=== PATIENT | female | born 1955 | race Caucasian/White ===

== ENCOUNTER 2024-05-22 03:33 | Emergency (ER) | payer MEDICARE, OTHER, SELFPAY ==
[2024-05-22 03:35] VITALS: BP 90/53
[2024-05-22] MEDS: ZOFRAN 4 MG IV (03:57)
[2024-05-22] MEDS: NSS 1000 IV (04:00)
[2024-05-22] MEDS: TYLENOL 1000 MG PO (04:05)
[2024-05-22 04:15] LABS: % Basophils 0.2 % (0-2); % Eosinophils 0.4 % (0-6); % Immature Granulocytes 0.6 % (0-0.5); % Monocytes 13.4 % (1.7-9.3); % Neutrophils 80.4 % (42.2-75.2); Absolute Lymphocytes 0.3 10^3/uL (1.2-3.4); Absolute Monocytes 0.7 10^3/uL (0.1-0.6); Absolute Neutrophils 4.4 10^3/uL (1.4-6.5); Hematocrit 37.8 % (37.0-47.0); Hemoglobin 13.6 g/dL (12.0-16.0); Mean Corpuscular Hgb 31.9 pg (27.0-31.0); Mean Corpuscular Volume 88.7 fL (81.0-99.0); Mean Platelet Volume 10.5 fL (7.4-10.4); Nucleated Red Blood Cells % 0 %; Platelet Count 150 10^3/uL (130-400); Red Blood Cell Count 4.26 10^6/uL (4.20-5.40); Red Cell Dist. Width 13.2 % (11.5-14.5); White Blood Cell Count 5.5 10^3/uL (4.8-10.8)
[2024-05-22 04:27] LABS: ALT (SGPT) 23 U/L (0-35); AST (SGOT) 32 U/L (14-36); Albumin 4.4 g/dl (3.5-5.0); Alkaline Phosphatase 77 U/L (38-126); Blood Urea Nitrogen 12 mg/dl (7-17); Calcium 9.5 mg/dl (8.4-10.2); Carbon Dioxide 20 mmol/L (22-30); Chloride 106 mmol/L (98-107); Glucose 118 mg/dl (70-99); Lipase 92 U/L (23-300); Potassium 3.6 mmol/L (3.5-5.1); Sodium 136 mmol/L (135-145); Total Bilirubin 0.4 mg/dl (0.2-1.3); Total Protein 6.5 g/dl (6.3-8.2); eGFR > 60.00
[2024-05-22 04:44] LABS: COVID-19 Antigen Positive (Negative)
[2024-05-22 04:46] LABS: Urine Albumin Negative (Neg - Trace); Urine Bilirubin Negative (Negative); Urine Character Slightly Cloudy (Clear); Urine Color Yellow; Urine Glucose Negative (Negative); Urine Ketone Trace (Negative); Urine Leukocyte Negative (Negative); Urine Nitrite Negative (Negative); Urine Occult Blood Negative (Negative); Urine Specific Gravity 1.015 (<1.030); Urine Urobilinogen Negative (Neg - 1+)
--- NOTE | 2024-05-22 05:11 | ED.GENMED ---
History of Present Illness
General
Chief Complaint: Abdominal Symptoms
Source: patient and spouse
Exam Limitations: none
Time Seen by Provider: 05/22/24 03:54
History of Present Illness
History of Present Illness:
68-year-old female who presents as started feeling ill after dinner. Started having shakes and fevers and felt nauseous. She also chills. She has a history of esophageal candidiasis. She states she only really vomited at home. Admits to a
little bit of epigastric pain. No cough. No sore throat. No rash
Past History
Past History
ED Past Medical History: GERD and Other (Scleroderma, depression, recovering alcoholic, esophageal and oral candidiasis)
ED Past Surgical History: Cholecystectomy, Gynecological and Orthopedic
Phy Exam
Physical Exam
Physical Exam:
CONSTITUTIONAL Patient alert and oriented to person, place and time. Vital signs reviewed. Febrile
HEAD atraumatic, normocephalic.
EYES eyelids normal to inspection, Extraocular muscles intact, Conjunctiva normal, Sclera normal.
NECK normal range of motion, Trachea midline, no jugular venous distention.
RESPIRATORY CHEST No respiratory distress noted, Chest expansion equal
ABDOMEN mild epigastric tenderness, Bowel sounds normal. No distention.
BACK normal inspection, no obvious deformities
UPPER EXTREMITY range of motion normal, Motor strength normal, no cyanosis, no edema.
LOWER EXTREMITY range of motion normal, Motor strength normal, no cyanosis, no edema.
NEURO Speech normal, No focal motor deficits, Kevon coma scale 15, Memory normal, Cranial Nerves intact to screening exam.
SKIN skin warm, dry, and normal in color.
PSYCHIATRIC patient oriented to person place and time, Normal affect.
Course
Orders/Labs/Results
Orders:
Orders
05/22/24 03:55
Ondansetron Injectable [Zofran] 4 mg IV NOW STA
05/22/24 03:56
Acetaminophen [Tylenol] 1,000 mg .ROUTE .[facility]
Ondansetron Injectable [Zofran] 4 mg .ROUTE .[facility]
05/22/24 04:00
0.9% Sodium Chloride 1000 ml [Nss] 1,000 ml IV BOLUS
05/22/24 04:03
Complete Blood Count/With Diff Urgent
Comprehensive Metabolic Panel Urgent
Lipase Urgent
05/22/24 04:05
Acetaminophen [Tylenol] 1,000 mg PO NOW STA
05/22/24 04:33
COVID-19 Antigen Urgent
Source: Nasal Swab
05/22/24 04:34
Urinalysis Reflex To Culture Urgent
Date Specimen was Collected: 05/22/24
Time Specimen was Collected: 04:28
05/22/24 05:09
Vital Signs- Treatment ONCE
Frequency: Once
Abnormal Lab Results
05/22/24 05/22/24 05/22/24
04:03 04:33 04:34
MCH 31.9 H pg
(27.0-31.0)
MPV 10.5 H fL
(7.4-10.4)
Absolute Lymphs (auto) 0.3 L 10^3/uL
(1.2-3.4)
Absolute Monos (auto) 0.7 H 10^3/uL
(0.1-0.6)
Immature Gran % 0.6 H %
(0-0.5)
Neutrophils % 80.4 H %
(42.2-75.2)
Lymphocytes % 5.0 L %
(20.5-51.1)
Monocytes % 13.4 H %
(1.7-9.3)
Carbon Dioxide 20 L mmol/L
(22-30)
Glucose 118 H mg/dl
(70-99)
Urine Ketones Trace A
(Negative)
SARS-CoV-2 Antigen Positive A
(Negative)
05/22/24 04:03
05/22/24 04:03
Vital Signs
Initial and Last Documented VS:
Initial Vital Signs
Temp Pulse Resp BP Pulse Ox
98.9 F 100 24 90/53 99
05/22/24 03:35 05/22/24 03:35 05/22/24 03:35 05/22/24 03:35 05/22/24 03:35
Last Documented Vital Signs
Temp Pulse Resp BP Pulse Ox
98.5 F 92 18 110/48 96
05/22/24 05:21 05/22/24 05:21 05/22/24 05:21 05/22/24 05:21 05/22/24 05:21
MDM/Problems Addressed
MDM/Problems Addressed:
COVID-19, fever
*Pulse Oximetry
Patient hypoxic: no
*Bacon Skinner Interpretation
Rate: normal
Interpretation: normal
Rhythm: sinus
*Critical Care Note
Total Time (30-74mins, 75-104mins- exclusive of procedures): Not Applicable
Data Reviewed
Source: patient and spouse
Prescriptions/Medications Considered But Not Given:
Considered Paxlovid but unsure of efficacy at this point. Okay for discharge
Patient Management
Escalation/DeEscalation of care consider admission/obs:
Patient feels much better. Temperature improved. Outpatient management reasonable
ED Attending Note
-
Portions of this chart may have been created with voice recognition software.� Occasional wrong word or��sound alike� substitutions may have occurred due to the inherent limitations of voice recognition software.
Discharge Plan
Departure
Patient Disposition: Home (Routine Discharge)
Date of Disposition: 05/22/24
Time of Disposition: 06:14
Patient with high blood pressure during this ER visit?: No
Discharge Problem:
COVID-19
Instructions: COVID-19 ED
Referrals:
Zari Fong MD [Other]
Activity Restrictions/Additional Instructions:
please use Tylenol for fever control. Please drink plenty fluids and rest. Please see your doctor in the next 1 week for follow-up and reevaluation. Return immediately for difficulty breathing, motor weakness, vomiting, or any other concerns.
Interventions
Interventions:
*Risk Screen - Suicide Last Done: 05/22/24 03:35
*Neglect/Abuse Screening Last Done: 05/22/24 03:35
*ED COVID-19 Vaccine History Last Done: 05/22/24 03:35
PX-Saozfa-Kmsvthnrbn Assessment Last Done: 05/22/24 04:39
Discharge Date and Time
Print Language: CZECH
[2024-05-22 05:21] VITALS: BP 110/48
== END 2024-05-22 06:15 | disposition home or self-care (01) ==
LOC: EMR 03:33
PROVIDERS: EMERGENCY PHYSICIAN Emergency Medicine
DX: U07.1 COVID-19 (principal); R11.2 Nausea with vomiting, unspecified; R25.1 Tremor, unspecified; Z11.52 Encounter for screening for COVID-19; K21.9 Gastro-esophageal reflux disease without esophagitis; M34.9 Systemic sclerosis, unspecified; F32.A Depression, unspecified; B37.81 Candidal esophagitis; F10.21 Alcohol dependence, in remission; Z90.49 Acquired absence of other specified parts of digestive tract
CPT/HCPCS: 99284; 96374; 80053; 81003; 83690; 85025; 87811